=== PATIENT | female | born 1960 | race Hispanic/Latino ===

== ENCOUNTER → 2017-09-02 | Outpatient (CLI) | payer BC | LOC: M WHC 15:06 | DX: Z12.31 Encounter for screening mammogram for malignant neoplasm of breast (principal) | CPT/HCPCS: 77067 ==

== ENCOUNTER → 2019-03-15 | Outpatient (CLI) | payer BC ==
--- NOTE | 2019-03-15 12:20 | REPMRS ---
Patient History The patient states she had a clinical breast exam in 02/2019. Family history of breast cancer at age 50 or over in paternal aunt. Digital Woman Screen Mammo: March 15, 2019 - Exam #: [id number] Bilateral CC and MLO view(s) were taken. Technologist: Rolanda Mclaughlin, Technologist Prior study comparison: September 02, 2017, digital woman screen mammo performed at [facility]. July 31, 2015, digital woman screen mammo performed at [facility]. September 25, 2013, digital woman screen mammo performed at [facility]. FINDINGS: There are scattered fibroglandular densities. There has been no change in the appearance of the mammogram from the prior studies. There is a mild amount of scattered fibroglandular density which is fairly symmetric. There is no interval development of dominant mass, architectural distortion, or grouped microcalcification suggestive of malignancy. 3-D tomosynthesis shows no additional findings. Assessment: BI-RADS/ACR category 1 mammogram. Negative Mammogram. Recommendation Routine screening mammogram of both breasts in 1 year (for women over age 40). This patient's Lifetime Breast Cancer Risk is estimated at 16.4 %. This mammogram was interpreted with the aid of an FDA-approved computer-aided dectection system. Electronically Signed By: Jordon Bull MD 03/15/19 0524
== END ==
LOC: M WHC 09:45
PROVIDERS: ATTEND Nurse Practitioner Women's Health
DX: Z12.31 Encounter for screening mammogram for malignant neoplasm of breast (principal)

== ENCOUNTER → 2019-03-15 | Outpatient (REF) | payer BC ==
[2019-03-17 15:01] LABS: HPV HYBRID CAPTURE II Negative (Negative)
== END ==
LOC: M SFHCWAGY 09:52
PROVIDERS: ATTEND Nurse Practitioner Women's Health
DX: Z12.4 Encounter for screening for malignant neoplasm of cervix (principal)
CPT/HCPCS: 87624; G0123

== ENCOUNTER → 2019-08-31 | Outpatient (REF) | payer BC | LOC: M SFHCPLAZ 09:25 | PROVIDERS: ATTEND Nurse Practitioner Adult Health | DX: Z83.49 Family history of other endocrine, nutritional and metabolic diseases (principal) ==

== ENCOUNTER → 2019-09-06 | Outpatient (CLI) | payer BC ==
--- NOTE | 2019-09-06 15:57 | REP ---
Clinical: Sensation of mass. Technique: Real time jeronimo scale and color evaluation using linear high frequency transducer. Findings: Right thyroid lobe is heterogeneous and measures 3.2 x 1.3 x 1.4 cm. Right lobe includes 4 x 3 x 4 mm complex nodule with small amount of fluid in soft tissue and 1.3 x 0.9 x 1.1 cm complex vascular hypoechoic nodule in the lower pole with calcified rim. Left thyroid lobe is heterogeneous and measures 2.6 x 1.4 x 1.3 cm with 4 x 2 x 3 mm hypoechoic nodule approaching the isthmus and 5 x 4 x 5 mm hypoechoic nodule in the medial lower pole. Isthmus measures 1.9 mm in width at the midline. Impression: Calcified vascular hypoechoic nodule in the right lower pole. Remainder of the nodules are relatively symmetric and nonspecific. Electronically Signed by Charles Capone MD 09/06/2019 03:48 P
== END ==
LOC: M RAD 14:53
PROVIDERS: ATTEND Nurse Practitioner Adult Health
DX: E04.1 Nontoxic single thyroid nodule (principal); Z83.49 Family history of other endocrine, nutritional and metabolic diseases

== ENCOUNTER → 2019-09-18 | Outpatient (CLI) | payer BC ==
[~2019-09-18] MED LIST: E-Z-GAS II EFFERVESCENT PACKET (SODIUM BICARB./CITRIC ACID/SIMETHICONE) As Ordered ONE; E-Z-HD 98% w/w 340GM SUSP BTL As Ordered ONE; E-Z-PAQUE 96% w/w SUSP 176GM BTL As Ordered ONE
--- NOTE | 2019-09-18 18:00 | REP ---
Examination Requested: Upper G.I. Series With KUB Reason For Exam: Sensation of a lump in throat Upper GI Air Contrast The procedure was performed by AVERY Salazar, under the direct supervision of Dr. Bull. The images were reviewed with Dr. Bull. The flask maker film shows no organomegaly or pathological masses. The intestinal gas pattern appears normal. Liquid barium and gas producing crystals were given in the erect position as well as liquid barium in the prone oblique position in order to perform a double contrast upper GI examination. The oral and pharyngeal stages of deglutition were unremarkable. Esophageal transport is efficient and there is no esophagitis, stricture, or mucosal ring noted. There is no hiatal hernia. Gastroesophageal reflux was not visualized throughout the course of the exam. The stomach dubose are normally outlined. The rugal folds are smooth and regular. There is no gastritis, neoplasm, ulcer disease noted. The duodenal dubose are normally outlined. The mucosal folds are smooth and regular. There is no duodenitis, peptic ulcer disease, or neoplasm noted. The visualized portion of the proximal small bowel appears normal in course and caliber. Impression: 1. Unremarkable upper GI series. 0.4 minutes of fluoroscopy time was utilized for this procedure. Some fluoroscopic images are performed with last image hold technology. These images require no additional radiation. Reviewed by AVERY Rothman 09/18/2019 12:25 P Electronically Signed by Venancio Bull MD 09/18/2019 05:51 P
== END ==
LOC: M RAD 08:40
PROVIDERS: ATTEND Nurse Practitioner Adult Health
DX: R22.1 Localized swelling, mass and lump, neck (principal); Z83.49 Family history of other endocrine, nutritional and metabolic diseases

== ENCOUNTER → 2021-02-27 | Outpatient (CLI) | payer BC ==
--- NOTE | 2021-02-27 12:31 | REPMRS ---
Patient History The patient states she has not had a clinical breast exam in over a year. Family history of breast cancer at age 50 or over in paternal aunt. 5 lb unintentional weight gain. covid vaccines 07/2020 right arm. 08/2020 right arm. Patient states no breast complaints today. Patient has signed MRS History Sheet. Digital Woman Screen Mammo: February 27, 2021 - Exam #: [id number] Bilateral CC and MLO view(s) were taken. Technologist: RT Adithya Prior study comparison: March 15, 2019, bilateral digital woman screen mammo performed at [facility]. September 02, 2017, digital woman screen mammo performed at [facility]. July 31, 2015, digital woman screen mammo performed at [facility]. FINDINGS: There are scattered fibroglandular densities. The Volpara volumetric breast density category is:B. There has been no change in the appearance of the mammogram from the prior studies. There is a mild amount of scattered fibroglandular density which is fairly symmetric. There is no interval development of dominant mass, architectural distortion, or grouped microcalcification suggestive of malignancy. 3-D tomosynthesis shows no additional findings. Assessment: BI-RADS/ACR category 1 mammogram. Negative Mammogram. Recommendation Routine screening mammogram of both breasts in 1 year (for women over age 40). This patient's [facility] Lifetime Breast Cancer Risk is estimated at 15.5 %. This mammogram was interpreted with the aid of an FDA-approved computer-aided dectection system. Electronically Signed By: Jordon Bull MD 02/27/21 [id number]
== END ==
LOC: M WHC 10:59
PROVIDERS: ATTEND Nurse Practitioner Women's Health
DX: Z12.31 Encounter for screening mammogram for malignant neoplasm of breast (principal); Z80.3 Family history of malignant neoplasm of breast; R63.5 Abnormal weight gain

== ENCOUNTER → 2021-03-13 | Outpatient (CLI) | payer BC ==
--- NOTE | 2021-03-13 12:12 | REP ---
INDICATION: GOITER. COMPARISON: 09/06/2019 TECHNIQUE: Real-time sonographic evaluation of the thyroid FINDINGS: The right lobe of the thyroid gland measures 4.1 x 1.4 x 1.5 cm. Left lobe measures 3.2 x 1.3 x 1.4 cm. The isthmus measures 3.6 mm. In the inferior pole of the right lobe there is a 1.3 x 1.1 x 1.3 cm sized complex cystic and solid mixed echo oval-shaped nodule which is highly vascular with power color Doppler. This nodule previously measured 1.3 x 0.9 x 1.1 cm. There is no other significant change in appearance of the thyroid gland. IMPRESSION: Concerning change in the appearance and increase in size of the nodule seen in the lower pole of the right lobe as described above. Malignancy cannot be ruled out. FNA should be considered. <Electronically signed by King Samuel > 03/13/21 0313
== END ==
LOC: M RAD 10:51
PROVIDERS: ATTEND Nurse Practitioner Adult Health
DX: E04.2 Nontoxic multinodular goiter (principal)

== ENCOUNTER → 2023-01-10 | Outpatient (REF) | payer BC, OTHER | LOC: M SFHCPLAZ 12:56 | PROVIDERS: ATTEND Nurse Practitioner Adult Health | DX: Z12.72 Encounter for screening for malignant neoplasm of vagina (principal) ==

== ENCOUNTER → 2023-01-13 | Outpatient (CLI) | payer BC, OTHER | LOC: M WHC 08:34 | PROVIDERS: ATTEND Nurse Practitioner Adult Health | DX: Z12.31 Encounter for screening mammogram for malignant neoplasm of breast (principal) ==

== ENCOUNTER → 2023-01-27 | Outpatient (CLI) | payer OTHER | LOC: M WHC 13:09 | PROVIDERS: ATTEND Nurse Practitioner Adult Health | DX: E04.2 Nontoxic multinodular goiter (principal) ==

== ENCOUNTER → 2023-03-01 | Outpatient (REF) | payer OTHER | LOC: M SFHCPLAZ 18:02 | PROVIDERS: ATTEND Nurse Practitioner Adult Health | DX: Z53.9 Procedure and treatment not carried out, unspecified reason (principal); E78.2 Mixed hyperlipidemia ==

== ENCOUNTER → 2023-03-14 | Outpatient (CLI) | payer OTHER ==
[2023-03-14 14:17] LABS: CHOLESTEROL RISK RATIO 3.17 (<5); HDL CHOLESTEROL 87.8 MG/DL (>40); LDL CHOLESTEROL 175.2 MG/DL (<100); NON-HDL-C 191.2 MG/DL
== END ==
LOC: M PLALAB 08:16
PROVIDERS: ATTEND Nurse Practitioner Adult Health
DX: E78.2 Mixed hyperlipidemia (principal)

== ENCOUNTER → 2024-01-31 | Outpatient (CLI) | payer OTHER | LOC: M WHC 07:35 | PROVIDERS: ATTEND Nurse Practitioner Adult Health | DX: Z12.31 Encounter for screening mammogram for malignant neoplasm of breast (principal) ==

== ENCOUNTER → 2025-02-05 | Outpatient (CLI) | payer OTHER | LOC: M WHC 12:02 | PROVIDERS: ATTEND Nurse Practitioner Adult Health | DX: Z12.31 Encounter for screening mammogram for malignant neoplasm of breast (principal); R92.323 Mammographic fibroglandular density, bilateral breasts ==